=== PATIENT | female | born 1975 | race African-American/Black ===

== ENCOUNTER 2019-12-18 00:31 | Inpatient (IN) | payer MEDICAID ==
[~2019-12-18] VITALS: Ht 162.6 cm; Wt 60.3 kg
[2019-12-18] MEDS ORDERED: SODIUM CHLORIDE 0.9% 1,000 ML IV ONE (01:00)
[2019-12-18 01:13] LABS: HEMATOCRIT. 38.4 % (36.0-48.0); HEMOGLOBIN. 12.9 g/dL (12.0-16.0); MEAN CORPUSCULAR HEMOGLOBIN 30.7 pg (28.0-32.0); MEAN CORPUSCULAR VOLUME 91.1 fL (81.0-99.0); MEAN PLATELET VOLUME 7.4 fl (7.4-10.4); PLATELET 379 x1000/uL (130-400); RED BLOOD CELL COUNT 4.21 mill/uL (4.2-5.4); RED CELL DISTRIBUTION WIDTH 15.4 % (11.6-14.6)
[2019-12-18] MEDS ORDERED: HALOPERIDOL LACTATE 5MG/ML VIAL IM STA (01:17)
[2019-12-18] MEDS ORDERED: OLANZAPINE 10 MG/VIAL IM STA (01:17)
[2019-12-18 01:26] LABS: HCG SCREEN NEGATIVE
[2019-12-18 01:31] LABS: CHLORIDE 103 mEq/L (98-107)
[2019-12-18 01:35] LABS: ETHANOL BLOOD < 10 mg/dL
[2019-12-18] MEDS ORDERED: DEXTROSE 50% WATER 50ML SYRINGE IV SCH ×2 (02:00→03:45)
[2019-12-18 02:01] LABS: CLARITY URINE TURBID (CLEAR); COLOR URINE ORANGE (YELLOW); KETONES URINE 4+ (NEGATIVE); LEUKOCYTE ESTERASE URINE 1+ (NEGATIVE); NITRITE URINE NEGATIVE (NEGATIVE); OCCULT BLOOD URINE 3+ (NEGATIVE); PROTEIN URINE 3+ (NEGATIVE)
[2019-12-18 02:03] LABS: PLATELET ESTIMATE MARKEDLY INCREASED
[2019-12-18 02:34] LABS: *BARBITURATES SCREEN URINE NEGATIVE (NEGATIVE); *BENZODIAZEPINES SCREEN URINE NEGATIVE (NEGATIVE); METHADONE URINE SCREEN NEGATIVE (NEGATIVE); OPIATES URINE SCREEN NEGATIVE (NEGATIVE)
[2019-12-18 02:35] LABS: PHENCYCLIDINE URINE SCREEN NEGATIVE (NEGATIVE)
[2019-12-18 02:44] LABS: CHLORIDE 108 mEq/L (98-107)
[2019-12-18 02:45] LABS: INR 1.1; PROTHROMBIN TIME 12.2 sec (9.6-11.0)
[2019-12-18 03:14] LABS: *AMPHETAMINES SCREEN URINE PRESUMTIVE POSITIVE (NEGATIVE); *COCAINE SCREEN URINE PRESUMTIVE POSITIVE (NEGATIVE); CANNABINOID URINE SCREEN PRESUMTIVE POSITIVE (NEGATIVE)
[2019-12-18] MEDS ORDERED: CEFTRIAXONE 1 G PREMIX 50 ML IV SCH (05:00)
[2019-12-18] MEDS ORDERED: DEXTROSE 50% WATER 50ML SYRINGE IV ONE (05:45)
[2019-12-18] MEDS ORDERED: ONDANSETRON HCL 4MG/2ML INJ IV PRN (10:15)
[2019-12-18] MEDS ORDERED: ACETAMINOPHEN 325MG TABLET PO PRN (10:15)
[2019-12-18] MEDS: HALOPERIDOL LACTATE 5MG/ML VIAL IM PRN (11:11)
[2019-12-18] MEDS: LORAZEPAM 2MG/ML CPJ IV PRN (11:11)
[2019-12-18 12:30] VITALS: BP 101/71
[2019-12-18 12:35] LABS: HEPATITIS B SURFACE ANTIGEN NEGATIVE
[2019-12-18 12:44] LABS: CREATINE KINASE 19041 IU/L (26-192)
[2019-12-18 13:00] VITALS: BP 101/71
[2019-12-18] MEDS ORDERED: DEXT 5%/0.45% NACL 1000ML 1,000 ML IV SCH (13:00)
[2019-12-18 13:04] LABS: HEPATITIS A AB IGM NEGATIVE (NEGATIVE)
[2019-12-18] MEDS: SODIUM BICARBONATE 100 MEQ in SODIUM CHLORIDE 0.45% 1,000 ML IV SCH (15:41)
[2019-12-18 16:00] VITALS: BP 119/65
[2019-12-18 20:00] VITALS: BP 121/77
[2019-12-19] VITALS: BP 108/70
[2019-12-19 04:00] VITALS: BP 102/55
[2019-12-19] MEDS ORDERED: CEFTRIAXONE 1 G PREMIX 50 ML IV SCH (05:00)
[2019-12-19] MEDS: SODIUM BICARBONATE 100 MEQ in SODIUM CHLORIDE 0.45% 1,000 ML IV SCH (06:41)
[2019-12-19] MEDS: CEFTRIAXONE 1 G PREMIX 50 ML IV SCH (06:41)
[2019-12-19 08:00] VITALS: BP 118/66
[2019-12-19 09:37] LABS: BASOPHILS % 0.2 % (0.0-2.0); HEMATOCRIT. 36.5 % (36.0-48.0); HEMOGLOBIN. 12.4 g/dL (12.0-16.0); LYMPHOCYTES % 13.4 % (20.0-50.0); MEAN CORPUSCULAR HEMOGLOBIN 30.9 pg (28.0-32.0); MEAN CORPUSCULAR VOLUME 91.3 fL (81.0-99.0); MEAN PLATELET VOLUME 7.6 fl (7.4-10.4); MONOCYTES % 10.6 % (2.0-8.0); NEUTROPHILS % 75.8 % (40.0-76.0); PLATELET 352 x1000/uL (130-400); RED CELL DISTRIBUTION WIDTH 15.4 % (11.6-14.6)
[2019-12-19 09:40] LABS: CHLORIDE 106 mEq/L (98-107)
[2019-12-19] MEDS: HALOPERIDOL LACTATE 5MG/ML VIAL IM PRN (10:48)
[2019-12-19 10:52] LABS: CREATINE KINASE 8295 IU/L (26-192)
[2019-12-19 12:00] VITALS: BP 105/61
[2019-12-19] MEDS: SODIUM CHLORIDE 0.45% 1,000 ML IV SCH (15:15)
[2019-12-19 16:00] VITALS: BP 115/75
[2019-12-19] MEDS: LORAZEPAM 2MG/ML CPJ IV PRN (18:27)
[2019-12-19 20:00] VITALS: BP 113/78
[2019-12-20] VITALS: BP 121/76
[2019-12-20] MEDS: SODIUM CHLORIDE 0.45% 1,000 ML IV SCH ×3 (00:35→18:30)
[2019-12-20] MEDS: HALOPERIDOL LACTATE 5MG/ML VIAL IM PRN ×2 (01:18→14:57)
[2019-12-20 04:00] VITALS: BP 99/58
[2019-12-20 06:26] LABS: BASOPHILS % 0.3 % (0.0-2.0); EOSINOPHILS % 0.1 % (0.0-5.0); HEMATOCRIT. 32.5 % (36.0-48.0); HEMOGLOBIN. 10.9 g/dL (12.0-16.0); MEAN CORPUSCULAR HEMOGLOBIN 30.8 pg (28.0-32.0); MEAN CORPUSCULAR VOLUME 91.8 fL (81.0-99.0); MEAN PLATELET VOLUME 7.8 fl (7.4-10.4); MONOCYTES % 11.8 % (2.0-8.0); NEUTROPHILS % 51.8 % (40.0-76.0); PLATELET 318 x1000/uL (130-400); RED BLOOD CELL COUNT 3.54 mill/uL (4.2-5.4); RED CELL DISTRIBUTION WIDTH 15.1 % (11.6-14.6)
[2019-12-20 06:37] LABS: CHLORIDE 107 mEq/L (98-107)
[2019-12-20 07:11] LABS: CREATINE KINASE 4801 IU/L (26-192)
[2019-12-20] MEDS: CEFTRIAXONE 1 G PREMIX 50 ML IV SCH (07:52)
[2019-12-20 08:00] VITALS: BP 139/84
[2019-12-20 16:00] VITALS: BP 109/70
[2019-12-20 20:00] VITALS: BP 106/57
[2019-12-20] MEDS: LORAZEPAM 2MG/ML CPJ IV PRN (21:16)
[2019-12-21] VITALS: BP 129/84
[2019-12-21 04:00] VITALS: BP 114/74
[2019-12-21] MEDS: SODIUM CHLORIDE 0.45% 1,000 ML IV SCH ×2 (04:30→14:30)
[2019-12-21] MEDS: CEFTRIAXONE 1 G PREMIX 50 ML IV SCH (06:00)
[2019-12-21 07:35] LABS: BASOPHILS % 0.7 % (0.0-2.0); HEMOGLOBIN. 11.8 g/dL (12.0-16.0); LYMPHOCYTES % 33.4 % (20.0-50.0); MEAN CORPUSCULAR VOLUME 92.2 fL (81.0-99.0); MEAN PLATELET VOLUME 7.9 fl (7.4-10.4); NEUTROPHILS % 54.9 % (40.0-76.0); PLATELET 343 x1000/uL (130-400); RED CELL DISTRIBUTION WIDTH 15.3 % (11.6-14.6)
[2019-12-21 07:37] LABS: CHLORIDE 111 mEq/L (98-107)
[2019-12-21 08:00] VITALS: BP 109/73
[2019-12-21 08:05] LABS: CREATINE KINASE 2678 IU/L (26-192)
[2019-12-21] MEDS: HALOPERIDOL LACTATE 5MG/ML VIAL IM PRN ×2 (11:19→21:05)
[2019-12-21 12:00] VITALS: BP 112/80
[2019-12-21 16:00] VITALS: BP 110/81
[2019-12-21] MEDS: LORAZEPAM 1MG TABLET PO PRN (17:29)
[2019-12-21] MEDS ORDERED: LORAZEPAM 2MG/ML CPJ IM PRN (18:15)
[2019-12-21 20:00] VITALS: BP 114/69
[2019-12-22] VITALS: BP 116/61
[2019-12-22] MEDS: SODIUM CHLORIDE 0.45% 1,000 ML IV SCH ×2 (00:30→10:03)
[2019-12-22 04:00] VITALS: BP 114/59
[2019-12-22 06:46] LABS: BASOPHILS % 0.4 % (0.0-2.0); HEMATOCRIT. 36.6 % (36.0-48.0); HEMOGLOBIN. 12.2 g/dL (12.0-16.0); LYMPHOCYTES % 30.8 % (20.0-50.0); MEAN CORPUSCULAR HEMOGLOBIN 30.9 pg (28.0-32.0); MEAN CORPUSCULAR VOLUME 92.5 fL (81.0-99.0); MEAN PLATELET VOLUME 7.6 fl (7.4-10.4); MONOCYTES % 11.8 % (2.0-8.0); PLATELET 349 x1000/uL (130-400); RED BLOOD CELL COUNT 3.96 mill/uL (4.2-5.4); RED CELL DISTRIBUTION WIDTH 15.6 % (11.6-14.6)
[2019-12-22 06:51] LABS: CHLORIDE 109 mEq/L (98-107)
[2019-12-22 07:13] LABS: CREATINE KINASE 1848 IU/L (26-192)
[2019-12-22 08:00] VITALS: BP 120/71
[2019-12-22 12:00] VITALS: BP 126/76
[2019-12-22 16:00] VITALS: BP 124/80
[2019-12-22 20:00] VITALS: BP 131/86
[2019-12-22] MEDS: HALOPERIDOL LACTATE 5MG/ML VIAL IM PRN (20:29)
[2019-12-23] VITALS: BP 114/66
[2019-12-23 04:00] VITALS: BP 101/43
[2019-12-23 06:45] LABS: BASOPHILS % 0.4 % (0.0-2.0); CHLORIDE 108 mEq/L (98-107); HEMATOCRIT. 35.3 % (36.0-48.0); HEMOGLOBIN. 12.1 g/dL (12.0-16.0); LYMPHOCYTES % 24.4 % (20.0-50.0); MEAN CORPUSCULAR HEMOGLOBIN 31.4 pg (28.0-32.0); MEAN CORPUSCULAR VOLUME 91.9 fL (81.0-99.0); MEAN PLATELET VOLUME 7.5 fl (7.4-10.4); MONOCYTES % 12.3 % (2.0-8.0); NEUTROPHILS % 62.9 % (40.0-76.0); PLATELET 349 x1000/uL (130-400); RED BLOOD CELL COUNT 3.85 mill/uL (4.2-5.4); RED CELL DISTRIBUTION WIDTH 15.2 % (11.6-14.6)
[2019-12-23 07:10] LABS: CREATINE KINASE 1499 IU/L (26-192)
[2019-12-23 08:00] VITALS: BP 117/78
[2019-12-23 12:00] VITALS: BP 114/68
[2019-12-23] MEDS: LORAZEPAM 1MG TABLET PO PRN (13:16)
[2019-12-23 16:00] VITALS: BP 126/84
[2019-12-23] MEDS: SODIUM CHLORIDE 0.45% 1,000 ML IV SCH (16:30)
[2019-12-23] MEDS: HALOPERIDOL LACTATE 5MG/ML VIAL IM PRN (19:48)
[2019-12-23 20:00] VITALS: BP 103/60
[2019-12-24] VITALS: BP 105/62
[2019-12-24 04:00] VITALS: BP 115/63
[2019-12-24 08:00] VITALS: BP 111/65
[2019-12-24] MEDS: LORAZEPAM 1MG TABLET PO PRN (10:11)
[2019-12-24 12:00] VITALS: BP 105/71
[2019-12-24 16:00] VITALS: BP 114/66
[2019-12-24 20:00] VITALS: BP 113/67
[2019-12-24] MEDS: HALOPERIDOL LACTATE 5MG/ML VIAL IM PRN (20:15)
[2019-12-25 04:00] VITALS: BP 102/60
[2019-12-25 08:00] VITALS: BP 107/63
[2019-12-25 12:00] VITALS: BP 106/51
[2019-12-25 16:00] VITALS: BP 114/82
[2019-12-25 20:00] VITALS: BP 110/70
[2019-12-25] MEDS: LORAZEPAM 1MG TABLET PO PRN (22:13)
[2019-12-26] VITALS: BP 123/70
[2019-12-26 04:00] VITALS: BP 111/63
[2019-12-26 05:59] LABS: HEMATOCRIT. 36.6 % (36.0-48.0); HEMOGLOBIN. 12.2 g/dL (12.0-16.0); MEAN CORPUSCULAR HEMOGLOBIN 30.8 pg (28.0-32.0); MEAN CORPUSCULAR VOLUME 92.2 fL (81.0-99.0); MEAN PLATELET VOLUME 7.6 fl (7.4-10.4); PLATELET 361 x1000/uL (130-400); RED BLOOD CELL COUNT 3.97 mill/uL (4.2-5.4); RED CELL DISTRIBUTION WIDTH 15.5 % (11.6-14.6)
[2019-12-26 06:58] LABS: CHLORIDE 109 mEq/L (98-107)
[2019-12-26 07:04] LABS: CREATINE KINASE 569 IU/L (26-192)
[2019-12-26 08:00] VITALS: BP 112/69
[2019-12-26 11:06] LABS: PLATELET ESTIMATE NORMAL
[2019-12-26 12:00] VITALS: BP 117/68
[2019-12-26 13:47] VITALS: BP 117/68
== END 2019-12-26 14:33 | DRG 816 ==
LOC: ER 00:31 → 6EST 05:44 → EDBEDREQ 05:56 → EDBEDREQTM 06:23 → ENRESERV 07:24 → CANRESERV 07:24 → EDBEDREQSVC 07:36 → EDBEDREQ 07:36 → EDBEDREQSVC 09:34 → EDBEDREQTM 09:55 → EDBEDREQ 09:55 → ENRESERV 11:58 → 6EST 12-19 18:17
PROVIDERS: ADMIT Internal Medicine; ATTEND Internal Medicine
DX: T40.5X1A Poisoning by cocaine, accidental (unintentional), initial encounter (principal); G92 Toxic encephalopathy; E87.2 Acidosis; M62.82 Rhabdomyolysis; E87.1 Hypo-osmolality and hyponatremia; E16.2 Hypoglycemia, unspecified; E87.5 Hyperkalemia; R45.851 Suicidal ideations; T43.621A Poisoning by amphetamines, accidental (unintentional), initial encounter; F12.10 Cannabis abuse, uncomplicated; F15.10 Other stimulant abuse, uncomplicated; F14.10 Cocaine abuse, uncomplicated; N39.0 Urinary tract infection, site not specified; F17.210 Nicotine dependence, cigarettes, uncomplicated; R74.0 Nonspecific elevation of levels of transaminase and lactic acid dehydrogenase [LDH]; F23 Brief psychotic disorder; T40.7X1A Poisoning by cannabis (derivatives), accidental (unintentional), initial encounter; Y92.89 Other specified places as the place of occurrence of the external cause; Z71.51 Drug abuse counseling and surveillance of drug abuser
CPT/HCPCS: 36415; 71045; 80048; 80053; 80305; 80307; 80320; 80329; 81003; 82550; 82962; 83880; 84702; 84703; 85025; 86705; 86709; 86803; 87340; 93005; 93306; 99285; J0696; J1630; J2060; J3490; J7030; G0480

== ENCOUNTER 2024-10-10 12:19 | Emergency (ER) | payer MEDICAID, OTHER ==
[~2024-10-10] VITALS: Ht 167.6 cm; Wt 73.0 kg
[2024-10-10 12:22] VITALS: O2SAT 99
[2024-10-10 14:49] LABS: BASOPHILS % 0.2 % (0.0-2.0); HEMATOCRIT. 40.1 % (36.0-48.0); HEMOGLOBIN. 13.6 g/dL (12.0-16.0); LYMPHOCYTES % 13.8 % (20.0-50.0); MEAN CORPUSCULAR HEMOGLOBIN 32.7 pg (28.0-32.0); MEAN CORPUSCULAR HGB CONC 33.9 g/dL (31.0-37.0); MEAN CORPUSCULAR VOLUME 96.5 fL (81.0-99.0); MEAN PLATELET VOLUME 7.1 fl (7.4-10.4); MONOCYTES % 9.6 % (2.0-8.0); NEUTROPHILS % 76.4 % (40.0-76.0); PLATELET 393 x1000/uL (130-400); RED BLOOD CELL COUNT 4.16 mill/uL (4.2-5.4); RED CELL DISTRIBUTION WIDTH 14.7 % (11.6-14.6)
[2024-10-10 14:51] LABS: CHLORIDE 105 mEq/L (98-107); SODIUM 138 mEq/L (136-145)
[2024-10-10 14:52] LABS: CARBON DIOXIDE 24 mEq/L (21-32); HCG SCREEN NEGATIVE
[2024-10-10 14:57] LABS: CREATININE 0.7 mg/dL (0.6-1.0); GLUCOSE 92 mg/dL (70-105); UREA NITROGEN BLOOD 10 mg/dL (9-23)
[2024-10-10 14:59] LABS: ACETAMINOPHEN < 2 ug/mL (10-30)
[2024-10-10 15:00] LABS: ETHANOL BLOOD < 10 mg/dL (<10)
[2024-10-10 15:18] LABS: *AMPHETAMINES SCREEN URINE PRESUMPTIVE POSITIVE (NEGATIVE); *BARBITURATES SCREEN URINE NEGATIVE (NEGATIVE); *BENZODIAZEPINES SCREEN URINE NEGATIVE (NEGATIVE); *COCAINE SCREEN URINE PRESUMPTIVE POSITIVE (NEGATIVE); CANNABINOID URINE SCREEN NEGATIVE (NEGATIVE); ECSTASY MDMA SCREEN URINE CONF.TEST INDICATED (NEGATIVE); METHADONE URINE SCREEN NEGATIVE (NEGATIVE); OPIATES URINE SCREEN NEGATIVE (NEGATIVE); PHENCYCLIDINE URINE SCREEN NEGATIVE (NEGATIVE)
[2024-10-10 21:39] LABS: CLARITY URINE TURBID (CLEAR); COLOR URINE DARK YELLOW (YELLOW); GLUCOSE URINE NEGATIVE (NEGATIVE); KETONES URINE 2+ (NEGATIVE); LEUKOCYTE ESTERASE URINE NEGATIVE (NEGATIVE); NITRITE URINE NEGATIVE (NEGATIVE); OCCULT BLOOD URINE NEGATIVE (NEGATIVE); PROTEIN URINE 1+ (NEGATIVE)
[2024-10-10 22:29] LABS: BACTERIA URINE TRACE; RBC URINE NONE SEEN /hpf (0-2); SQUAMOUS EPITHELIAL CELL URINE 3+ /lpf (RARE/1+); WBC URINE NONE SEEN /hpf (0-2)
[2024-10-10] MEDS: RISPERIDONE 1MG TABLET PO SCH (23:40)
[2024-10-10] MEDS: LEVETIRACETAM 500MG TABLET PO STA (23:40)
[2024-10-11] MEDS: LEVETIRACETAM 500MG TABLET PO NR (00:12)
[2024-10-11] MEDS: HALOPERIDOL LACTATE 5MG/ML VIAL IM ONE (19:30)
[2024-10-11] MEDS: LORAZEPAM 2MG/ML INJ IM ONE (19:30)
[2024-10-11] MEDS: DIPHENHYDRAMINE 50MG/ML VIAL IM ONE (19:30)
[2024-10-12 09:58] VITALS: BP 130/72; PULSE 80; RESP 18; TEMP 36.66960; O2SAT 99
== END 2024-10-12 10:00 | disposition home or self-care (01) ==
LOC: ER 12:19
DX: R44.0 Auditory hallucinations (principal); I10 Essential (primary) hypertension; Z20.822 Contact with and (suspected) exposure to COVID-19; Z59.00 Homelessness unspecified; Z86.59 Personal history of other mental and behavioral disorders
CPT/HCPCS: 36415; 80048; 80305; 80307; 80320; 80329; 81003; 81025; 84703; 85025; 87426; 99285; G0480

== ENCOUNTER 2024-10-27 22:35 | Emergency (ER) | payer OTHER ==
[~2024-10-27] VITALS: Ht 160 cm; Wt 69.0 kg
[2024-10-27 22:58] VITALS: TEMP 36.9; O2SAT 98
[2024-10-27] MEDS: OLANZAPINE 10 MG/VIAL IM STA (23:18)
[2024-10-28 01:14] LABS: BASOPHILS % 0.9 % (0.0-2.0); EOSINOPHILS % 0.1 % (0.0-5.0); HEMATOCRIT. 42.8 % (36.0-48.0); HEMOGLOBIN. 14.1 g/dL (12.0-16.0); LYMPHOCYTES % 45.6 % (20.0-50.0); MEAN CORPUSCULAR HEMOGLOBIN 32.4 pg (28.0-32.0); MEAN CORPUSCULAR HGB CONC 32.9 g/dL (31.0-37.0); MEAN CORPUSCULAR VOLUME 98.7 fL (81.0-99.0); MEAN PLATELET VOLUME 7.4 fl (7.4-10.4); MONOCYTES % 11.4 % (2.0-8.0); PLATELET 329 x1000/uL (130-400); RED BLOOD CELL COUNT 4.33 mill/uL (4.2-5.4); RED CELL DISTRIBUTION WIDTH 14.8 % (11.6-14.6); WHITE BLOOD COUNT 4.9 x1000/uL (4.5-11.0)
[2024-10-28 01:23] LABS: CHLORIDE 108 mEq/L (98-107); POTASSIUM 3.7 mEq/L (3.5-5.1); SODIUM 139 mEq/L (136-145)
[2024-10-28 01:24] LABS: CARBON DIOXIDE 19 mEq/L (21-32)
[2024-10-28 01:25] LABS: CALCIUM 9.4 mg/dL (8.7-10.4)
[2024-10-28 01:29] LABS: CREATININE 0.8 mg/dL (0.6-1.0); GLUCOSE 73 mg/dL (70-105)
[2024-10-28 01:30] LABS: ETHANOL BLOOD 117 mg/dL (<10)
[2024-10-28 01:31] LABS: ACETAMINOPHEN < 2 ug/mL (10-30)
[2024-10-28 01:48] LABS: HCG SCREEN NEGATIVE
[2024-10-28 01:49] LABS: UREA NITROGEN BLOOD < 5 mg/dL (9-23)
[2024-10-28 03:35] VITALS: BP 145/98; PULSE 100; RESP 18; O2SAT 99
[2024-10-28 09:55] LABS: *AMPHETAMINES SCREEN URINE PRESUMPTIVE POSITIVE (NEGATIVE); *BARBITURATES SCREEN URINE NEGATIVE (NEGATIVE); *BENZODIAZEPINES SCREEN URINE NEGATIVE (NEGATIVE); *COCAINE SCREEN URINE PRESUMPTIVE POSITIVE (NEGATIVE); CANNABINOID URINE SCREEN NEGATIVE (NEGATIVE); ECSTASY MDMA SCREEN URINE CONF.TEST INDICATED (NEGATIVE); METHADONE URINE SCREEN NEGATIVE (NEGATIVE); OPIATES URINE SCREEN NEGATIVE (NEGATIVE); PHENCYCLIDINE URINE SCREEN NEGATIVE (NEGATIVE)
== END 2024-10-28 11:27 | disposition home or self-care (01) ==
LOC: ER 22:35
DX: F19.20 Other psychoactive substance dependence, uncomplicated (principal); F20.9 Schizophrenia, unspecified; I10 Essential (primary) hypertension; F14.90 Cocaine use, unspecified, uncomplicated; F15.90 Other stimulant use, unspecified, uncomplicated; Z79.899 Other long term (current) drug therapy; Z59.00 Homelessness unspecified; Z20.822 Contact with and (suspected) exposure to COVID-19
CPT/HCPCS: 36415; 93005; 96372; 99284; 80305; 80048; 80307; 80329; 80320; 84703; 85025; 87426; J3490; G0480

== ENCOUNTER 2024-11-02 15:15 | Emergency (ER) | payer OTHER ==
[~2024-11-02] VITALS: Ht 165.1 cm; Wt 75.0 kg
[2024-11-02 15:16] VITALS: O2SAT 98
[2024-11-02] MEDS: LORAZEPAM 1MG TABLET PO NR (15:30)
[2024-11-02] MEDS ORDERED: LORAZEPAM 1MG TABLET PO ONE (15:30)
[2024-11-02 15:45] LABS: CLARITY URINE CLEAR (CLEAR); COLOR URINE YELLOW (YELLOW)
[2024-11-02 15:46] LABS: GLUCOSE URINE NEGATIVE (NEGATIVE); KETONES URINE TRACE (NEGATIVE); LEUKOCYTE ESTERASE URINE NEGATIVE (NEGATIVE); NITRITE URINE NEGATIVE (NEGATIVE); OCCULT BLOOD URINE NEGATIVE (NEGATIVE); PROTEIN URINE NEGATIVE (NEGATIVE); SPECIFIC GRAVITY URINE >=1.030 (1.005-1.030)
[2024-11-02 16:03] LABS: BASOPHILS % 0.3 % (0.0-2.0); HEMATOCRIT. 38.7 % (36.0-48.0); MEAN CORPUSCULAR HEMOGLOBIN 32.5 pg (28.0-32.0); MEAN CORPUSCULAR HGB CONC 33.6 g/dL (31.0-37.0); MEAN CORPUSCULAR VOLUME 96.5 fL (81.0-99.0); MEAN PLATELET VOLUME 7.5 fl (7.4-10.4); MONOCYTES % 4.5 % (2.0-8.0); NEUTROPHILS % 86.2 % (40.0-76.0); PLATELET 308 x1000/uL (130-400); RED BLOOD CELL COUNT 4.02 mill/uL (4.2-5.4); RED CELL DISTRIBUTION WIDTH 14.5 % (11.6-14.6); WHITE BLOOD COUNT 6.4 x1000/uL (4.5-11.0)
[2024-11-02 16:05] LABS: *AMPHETAMINES SCREEN URINE PRESUMPTIVE POSITIVE (NEGATIVE); *BARBITURATES SCREEN URINE NEGATIVE (NEGATIVE); *BENZODIAZEPINES SCREEN URINE NEGATIVE (NEGATIVE); *COCAINE SCREEN URINE PRESUMPTIVE POSITIVE (NEGATIVE); CANNABINOID URINE SCREEN NEGATIVE (NEGATIVE); ECSTASY MDMA SCREEN URINE CONF.TEST INDICATED (NEGATIVE); METHADONE URINE SCREEN NEGATIVE (NEGATIVE); OPIATES URINE SCREEN NEGATIVE (NEGATIVE); PHENCYCLIDINE URINE SCREEN NEGATIVE (NEGATIVE)
[2024-11-02 16:15] LABS: CHLORIDE 108 mEq/L (98-107); POTASSIUM 3.6 mEq/L (3.5-5.1); SODIUM 139 mEq/L (136-145)
[2024-11-02 16:16] LABS: CALCIUM 9.4 mg/dL (8.7-10.4); CARBON DIOXIDE 25 mEq/L (21-32)
[2024-11-02 16:21] LABS: GLUCOSE 130 mg/dL (70-105); UREA NITROGEN BLOOD 10 mg/dL (9-23)
[2024-11-02 16:23] LABS: ACETAMINOPHEN < 2 ug/mL (10-30)
[2024-11-02 16:24] LABS: ETHANOL BLOOD < 10 mg/dL (<10); HCG SCREEN NEGATIVE
[2024-11-03 14:00] VITALS: BP 108/67; PULSE 82; RESP 18; TEMP 36.7; O2SAT 98
[2024-11-03] MEDS ORDERED: RISPERIDONE 0.5MG TABLET PO SCH (21:00)
== END 2024-11-03 15:40 | disposition home or self-care (01) ==
LOC: ER 15:15
DX: F20.9 Schizophrenia, unspecified (principal); F19.10 Other psychoactive substance abuse, uncomplicated; I10 Essential (primary) hypertension; F10.90 Alcohol use, unspecified, uncomplicated; F15.90 Other stimulant use, unspecified, uncomplicated; Z59.01 Sheltered homelessness; Z79.899 Other long term (current) drug therapy; Z91.51 Personal history of suicidal behavior; Y90.9 Presence of alcohol in blood, level not specified
CPT/HCPCS: 36415; 80048; 80305; 80307; 80320; 80329; 81003; 84703; 85025; 99285; G0480

== ENCOUNTER 2025-01-07 15:59 | Emergency (ER) | payer OTHER ==
[~2025-01-07] VITALS: Ht 172.7 cm; Wt 64.0 kg
[2025-01-07 16:02] VITALS: O2SAT 99
[2025-01-07] MEDS: OLANZAPINE 5MG TABLET ODT PO ONE (17:00)
[2025-01-07 17:16] LABS: CHLORIDE 102 mEq/L (98-107); POTASSIUM 4.4 mEq/L (3.5-5.1); SODIUM 134 mEq/L (136-145)
[2025-01-07 17:17] LABS: CALCIUM 10.1 mg/dL (8.7-10.4); CARBON DIOXIDE 21 mEq/L (21-32)
[2025-01-07 17:22] LABS: CREATININE 0.7 mg/dL (0.6-1.0); GLUCOSE 99 mg/dL (70-105); HCG SCREEN NEGATIVE; UREA NITROGEN BLOOD 8 mg/dL (9-23)
[2025-01-07 17:23] LABS: ETHANOL BLOOD < 10 mg/dL (<10)
[2025-01-07 17:24] LABS: ACETAMINOPHEN < 2 ug/mL (10-30)
[2025-01-07 17:24] LABS: BASOPHILS % 0.4 % (0.0-2.0); HEMATOCRIT. 36.6 % (36.0-48.0); HEMOGLOBIN. 12.1 g/dL (12.0-16.0); LYMPHOCYTES % 22.5 % (20.0-50.0); MEAN CORPUSCULAR HEMOGLOBIN 30.3 pg (28.0-32.0); MEAN CORPUSCULAR HGB CONC 33.1 g/dL (31.0-37.0); MEAN CORPUSCULAR VOLUME 91.6 fL (81.0-99.0); MEAN PLATELET VOLUME 7.1 fl (7.4-10.4); MONOCYTES % 13.7 % (2.0-8.0); NEUTROPHILS % 63.4 % (40.0-76.0); PLATELET 290 x1000/uL (130-400); RED BLOOD CELL COUNT 3.99 mill/uL (4.2-5.4); RED CELL DISTRIBUTION WIDTH 15.1 % (11.6-14.6); WHITE BLOOD COUNT 8.3 x1000/uL (4.5-11.0)
[2025-01-07 17:53] LABS: CLARITY URINE CLOUDY (CLEAR); COLOR URINE DARK YELLOW (YELLOW); GLUCOSE URINE NEGATIVE (NEGATIVE); KETONES URINE 1+ (NEGATIVE); LEUKOCYTE ESTERASE URINE 2+ (NEGATIVE); NITRITE URINE NEGATIVE (NEGATIVE); OCCULT BLOOD URINE NEGATIVE (NEGATIVE); PROTEIN URINE 1+ (NEGATIVE); SPECIFIC GRAVITY URINE 1.022 (1.005-1.030)
[2025-01-07 18:08] LABS: *AMPHETAMINES SCREEN URINE PRESUMPTIVE POSITIVE (NEGATIVE)
[2025-01-07 18:09] LABS: *BARBITURATES SCREEN URINE NEGATIVE (NEGATIVE); *BENZODIAZEPINES SCREEN URINE NEGATIVE (NEGATIVE); *COCAINE SCREEN URINE PRESUMPTIVE POSITIVE (NEGATIVE)
[2025-01-07 18:10] LABS: CANNABINOID URINE SCREEN NEGATIVE (NEGATIVE); ECSTASY MDMA SCREEN URINE CONF.TEST INDICATED (NEGATIVE); METHADONE URINE SCREEN NEGATIVE (NEGATIVE); OPIATES URINE SCREEN NEGATIVE (NEGATIVE); PHENCYCLIDINE URINE SCREEN NEGATIVE (NEGATIVE); WBC URINE 0-2 /hpf (0-2)
[2025-01-07 18:11] LABS: BACTERIA URINE NONE SEEN; RBC URINE NONE SEEN /hpf (0-2); SQUAMOUS EPITHELIAL CELL URINE 1+ /lpf (RARE/1+)
[2025-01-07] MEDS: DIPHENHYDRAMINE 50MG/ML VIAL IM ONE (22:41)
[2025-01-08 12:49] VITALS: BP 118/70; PULSE 85; RESP 18; TEMP 36.6; O2SAT 99
[2025-01-08] MEDS ORDERED: RISPERIDONE 0.5MG TABLET PO SCH (21:00)
== END 2025-01-08 12:59 ==
LOC: ER 15:59
DX: R45.851 Suicidal ideations (principal); F20.9 Schizophrenia, unspecified; Z59.00 Homelessness unspecified; Z79.899 Other long term (current) drug therapy; Z20.822 Contact with and (suspected) exposure to COVID-19
CPT/HCPCS: 80305; 80048; 81003; 80307; 80329; 80320; 84703; 85025; 36415; 96372; 99285; 87426; J1200; G0480

== ENCOUNTER 2025-01-22 18:52 | Emergency (ER) | payer OTHER ==
[~2025-01-22] VITALS: Ht 170.2 cm; Wt 78.0 kg
[2025-01-22 18:54] VITALS: O2SAT 98
[2025-01-22 19:29] LABS: BASOPHILS % 0.3 % (0.0-2.0); EOSINOPHILS % 0.2 % (0.0-5.0); HEMATOCRIT. 36.7 % (36.0-48.0); HEMOGLOBIN. 12.5 g/dL (12.0-16.0); LYMPHOCYTES % 26.1 % (20.0-50.0); MEAN CORPUSCULAR HEMOGLOBIN 31.9 pg (28.0-32.0); MEAN CORPUSCULAR VOLUME 93.9 fL (81.0-99.0); MEAN PLATELET VOLUME 6.7 fl (7.4-10.4); MONOCYTES % 12.7 % (2.0-8.0); NEUTROPHILS % 60.7 % (40.0-76.0); PLATELET 429 x1000/uL (130-400); RED BLOOD CELL COUNT 3.91 mill/uL (4.2-5.4); RED CELL DISTRIBUTION WIDTH 15.8 % (11.6-14.6); WHITE BLOOD COUNT 6.2 x1000/uL (4.5-11.0)
[2025-01-22 19:35] LABS: CARBON DIOXIDE 22 mEq/L (21-32); CHLORIDE 101 mEq/L (98-107); POTASSIUM 3.8 mEq/L (3.5-5.1); SODIUM 137 mEq/L (136-145)
[2025-01-22 19:36] LABS: CALCIUM 9.1 mg/dL (8.7-10.4)
[2025-01-22 19:40] LABS: CREATININE 0.8 mg/dL (0.6-1.0)
[2025-01-22 19:41] LABS: ETHANOL BLOOD < 10 mg/dL (<10); GLUCOSE 84 mg/dL (70-105); UREA NITROGEN BLOOD 5 mg/dL (9-23)
[2025-01-22 19:42] LABS: ACETAMINOPHEN < 2 ug/mL (10-30); ALANINE AMINOTRANSFERASE 17 IU/L (10-49); ALBUMIN 3.8 g/dL (3.2-4.8); ASPARTATE AMINOTRANSFERASE 28 IU/L (<34)
[2025-01-22 19:43] LABS: BILIRUBIN DIRECT 0.2 mg/dL (<=3.0); BILIRUBIN TOTAL 0.6 mg/dL (0.1-1.0); PROTEIN TOTAL 7.7 g/dL (6.0-8.3)
[2025-01-22 21:18] LABS: CLARITY URINE CLEAR (CLEAR); COLOR URINE YELLOW (YELLOW); GLUCOSE URINE NEGATIVE (NEGATIVE); KETONES URINE 4+ (NEGATIVE); LEUKOCYTE ESTERASE URINE 1+ (NEGATIVE); NITRITE URINE NEGATIVE (NEGATIVE); OCCULT BLOOD URINE NEGATIVE (NEGATIVE); PROTEIN URINE NEGATIVE (NEGATIVE); SPECIFIC GRAVITY URINE 1.011 (1.005-1.030)
[2025-01-22 21:22] LABS: HCG SCREEN NEGATIVE
[2025-01-22 21:30] LABS: BACTERIA URINE NONE SEEN; RBC URINE NONE SEEN /hpf (0-2); SQUAMOUS EPITHELIAL CELL URINE 1+ /lpf (RARE/1+)
[2025-01-22 21:35] LABS: *AMPHETAMINES SCREEN URINE PRESUMPTIVE POSITIVE (NEGATIVE); *BARBITURATES SCREEN URINE NEGATIVE (NEGATIVE); *BENZODIAZEPINES SCREEN URINE NEGATIVE (NEGATIVE); *COCAINE SCREEN URINE NEGATIVE (NEGATIVE); CANNABINOID URINE SCREEN NEGATIVE (NEGATIVE); ECSTASY MDMA SCREEN URINE NEGATIVE (NEGATIVE); METHADONE URINE SCREEN NEGATIVE (NEGATIVE); OPIATES URINE SCREEN NEGATIVE (NEGATIVE); PHENCYCLIDINE URINE SCREEN PRESUMTIVE POSITIVE (NEGATIVE)
[2025-01-23] MEDS: RISPERIDONE 0.5MG TABLET PO SCH (11:00)
[2025-01-23 14:59] VITALS: BP 118/64; PULSE 90; RESP 16; TEMP 36.8; O2SAT 100
== END 2025-01-23 16:23 | disposition short-term general hospital (02) ==
LOC: ER 18:52
DX: R45.851 Suicidal ideations (principal); F32.A Depression, unspecified; Z20.822 Contact with and (suspected) exposure to COVID-19; Z86.59 Personal history of other mental and behavioral disorders
CPT/HCPCS: 80076; 80305; 80048; 81003; 80307; 80329; 80320; 84703; 85025; 36415; 99285; 87426; Z7610 ×2; G0480